=== PATIENT | male | born 1980 | race Caucasian/White ===

== ENCOUNTER 2016-09-18 14:21 | Emergency (ER) | payer OTHER ==
[2016-09-18 14:26] VITALS: BP 142/88; PULSE 79; TEMP 98.4; BMI 26.6
[2016-09-18] MEDS ORDERED: SODIUM CHLORIDE 1,000 ML IV STA (14:43)
[2016-09-18] MEDS ORDERED: METOCLOPRAMIDE HCL INJECTION 10 MG/2 ML VIAL IVPB ONE (14:44)
--- NOTE | 2016-09-18 14:47 | PDOC ---
History of Present Illness - General History Source: Patient, Old Records Exam Limitations: No Limitations - History of Present Illness Initial Comments: 09/18/16 14:53 The patient is a 36 year old with a significant past medical history of migraines, who presents to the emergency department today for further evaluation of headache onset 4 days ago. The patient states that his headache started out very mild and has progressively worsened and has remained constant. The patient notes that his pain is located at the temples bilaterally. The patient reports that he drinks red bull everyday, sometimes as many as 3 times per day. The patient notes that he took Advil today with minimal alleviation of symptoms. The patient reports that he has experienced similar symptoms in that past and notes they are triggered by drinking red bull, over exercising, and decreased food intake. The patient denies head trauma and fever. The patient denies dysphagia , vision changes, and difficulty speaking. The patient denies nausea and vomiting The patient denies chest pain and neck pain PAST MEDICAL HISTORY: Migraines PAST SURGICAL HISTORY: no significant history reported FAMILY HISTORY: no pertinent history reported SOCIAL HISTORY: Smokes marijuana daily MEDICATIONS: reviewed ALLERGIES: As per nursing notes <Arjun Shipley - Last Filed: 09/18/16 15:48> <Janes Cali - Last Filed: 09/18/16 15:54> - General Chief Complaint: Headache Stated Complaint: headache Time Seen by Provider: 09/18/16 14:42 Past History <Arjun Shipley - Last Filed: 09/18/16 15:48> - Past Medical History Anemia: No Asthma: No Cancer: No Cardiac Disorders: No CVA: No COPD: No Diabetes: No HTN: Yes (NOT ON MEDICATION) Hypercholesterolemia: No HIV: No Kidney Stones: No Liver Disease: No Psychiatric Problems: No Suicide Attempt (Hx): No - Immunization History Td Vaccination: Yes Immunization Up to Date: No - Psycho/Social/Smoking Cessation Hx Anxiety: No Suicidal Ideation: No Smoking Status: No Smoking History: Never smoked Have you smoked in the past 12 months: Yes Number of Cigarettes Smoked Daily: 0 Information on smoking cessation initiated: No 'Breaking Loose' booklet given: 05/22/15 Hx Alcohol Use: No Drug/Substance Use Hx: Yes Substance Use Type: Marijuana <Janes Cali - Last Filed: 09/18/16 15:54> - Past Medical History Allergies/Adverse Reactions: Allergies Allergy/AdvReac Type Severity Reaction Status Date / Time No Known Allergies Allergy Verified 09/18/16 14:22 Home Medications: Ambulatory Orders Naproxen [EC-Naprosyn] 375 mg PO BID PRN #18 tablet.ec 09/18/16 Review of Systems - Review of Systems Able to Perform ROS?: Yes Comments:: 09/18/16 14:53 CONSTITUTIONAL: Absent: Fever, Chills, Diaphoresis, Generalized Weakness, Malaise, Loss of Appetite HEENT: Absent: Rhinorrhea, Nasal Congestion, Throat Pain, Throat Swelling, Difficulty Swallowing, Mouth Swelling, Ear Pain, Eye Pain, Visual Changes CARDIOVASCULAR: Absent: Chest Pain, Syncope, Palpitations, Irregular Heart Rate, Lightheadedness , Peripheral Edema RESPIRATORY: Absent: Cough, Shortness of Breath, SOB with Exertion, Orthopnea, Wheezing, Stridor, Hemoptysis GASTROINTESTINAL: Absent: Abdominal pain, Abdominal Distension, Nausea, Vomiting, Diarrhea, Constipation, Melena, Hematochezia GENITOURINARY: Absent: Dysuria, Frequency, Urgency, Hesitancy, Flank Pain, Genital Pain MUSCULOSKELETAL: Absent: Myalgia, Arthralgia, Joint Swelling, Back pain, Neck Pain SKIN: Absent: Rash, Itching, PalloR HEMEATOLOGIC/IMMUNOLOGIC: Absent: Easy Bleeding, Easy Bruising, Lymphadenopathy, Frequent infections ENDOCRINE: Absent: Unexplained Weight Gain, Unexplained Weight Loss, Heat Intolerance, Cold Intolerance NEUROLOGIC: Present: Headache Absent: Focal Weakness, Paresthesias, Vertigo, Lightheadedness, Unsteady Gait, Seizure, Mental Status Changes, Incontinence PSYCHIATRIC: Absent: Anxiety, Depression <Arjun Shipley - Last Filed: 09/18/16 15:48> *Physical Exam - Vital Signs Last Vital Signs Temp Pulse Resp BP Pulse Ox 98.4 F 79 16 142/88 100 09/18/16 14:21 09/18/16 14:21 09/18/16 14:21 09/18/16 14:21 09/18/16 14:21 - Physical Exam Comments: 09/18/16 14:55 GENERAL: The patient is awake, alert, and fully oriented, in no acute distress. HEAD: Normal with no signs of trauma. EYES: Pupils equal, round and reactive to light, extraocular movements intact, sclera anicteric, conjunctiva clear. ENT: Ears normal, nares patent, oropharynx clear without exudates. Moist mucous membranes. NECK: Normal range of motion, supple without lymphadenopathy, JVD, or masses. Carotids no bruis. LUNGS: Breath sounds equal, clear to auscultation bilaterally. No wheezes, and no crackles. HEART: Regular rate and rhythm, normal S1 and S2 without murmur, rub or gallop. ABDOMEN: Soft, nontender, normoactive bowel sounds. No guarding, no rebound. No masses. EXTREMITIES: Normal range of motion, no edema. No clubbing or cyanosis. No cords , erythema, or tenderness. PSYCH: Normal mood, normal affect. SKIN: Warm, Dry, normal turgor, no rashes or lesions noted. NEUROLOGICAL Mental status: The patient is oriented x3. Cranial nerves: Cranial nerves II through XII are intact Motor: The upper extremities are 5 over 5 in all muscle groups. The lower extremities are 5 over 5 in all muscle groups. Sensation: Sensation is intact to light touch throughout. Cerebellar: Xlaeba-yaznmi-ublc is normal in both upper extremities. Heel-knee- mesa is normal in both lower extremities. Reflexes: 2+ and symmetric in the upper and lower extremities. Gait: Normal. Heel and toe walking are normal. Tandem gait is normal. <Arjun Shipley - Last Filed: 09/18/16 15:48> - Vital Signs Last Vital Signs Temp Pulse Resp BP Pulse Ox 98.4 F 79 16 142/88 100 09/18/16 14:21 09/18/16 14:21 09/18/16 14:21 09/18/16 14:21 09/18/16 14:21 <Janes Cali - Last Filed: 09/18/16 15:54> Medical Decision Making - Medical Decision Making 09/18/16 15:49 Patient is a 36-year-old man with a history of recurrent headaches. He comes in now with a bitemporal headache that is typical, consistent with his prior headaches. He states that the headache has been present for 4 days, started mild and then progressed, comes and goes, sometimes worse, and moderate currently. No associated fever or head trauma. No neck pain or stiffness. No photophobia. Physical examination including a detailed neurological examination is completely normal. Impression: Probable tension headache versus migraine variant. Plan: Patient given IV fluids, Benadryl and Reglan with complete resolution of pain. On reassessment, his pain is 0/10. He states he is feeling well. Patient will get a prescription for Naprosyn as needed, and he is referred to primary care with Dr. Montana. <Janes Cali - Last Filed: 09/18/16 15:54> *DC/Admit/Observation/Transfer - Attestations Scribe Attestion: 09/18/16 15:11 Documentation prepared by Arjun Shipley, acting as medical billing and coding specialist for Janes Cali MD. <Arjun Shipley - Last Filed: 09/18/16 15:48> - Discharge Dispostion Admit: No <Janes Cali - Last Filed: 09/18/16 15:54> Diagnosis at time of Disposition: Headache Qualifiers: Headache type: tension-type Headache chronicity pattern: acute headache Intractability: not intractable Qualified Code(s): G44.209 - Tension-type headache, unspecified, not intractable - Discharge Dispostion Disposition: HOME Condition at time of disposition: Stable - Prescriptions Prescriptions: Naproxen [EC-Naprosyn] 375 mg PO BID PRN #18 tablet.ec PRN Reason: Headache - Referrals Referrals: Андрей Montana MD [Staff Physician] - - Patient Instructions Printed Discharge Instructions: DI for Headache Additional Instructions: You were evaluated today for a headache. You were given IV normal saline, Benadryl and Reglan for the headache with complete resolution. A prescription for Naprosyn twice a day has been sent to your pharmacy. Take Naprosyn as needed for headache. Drink plenty of fluids. Avoid excessive red bull use. Patient should eat frequent small meals to avoid headaches. Follow-up with Dr. Montana next week. Return to the emergency department for any severe or progressive symptoms.
== END 2016-09-18 16:13 | disposition home or self-care (01) ==
LOC: FER 14:21
PROC: 3E033GC Introduction of Other Therapeutic Substance into Peripheral Vein, Percutaneous Approach (ICD-10-PCS; principal; 2016-09-18)
PROC: 3E0337Z Introduction of Electrolytic and Water Balance Substance into Peripheral Vein, Percutaneous Approach (ICD-10-PCS; 2016-09-18)
DX: G44.209 Tension-type headache, unspecified, not intractable (principal)
CPT/HCPCS: 96361; 96374; 96375; 99282-25

== ENCOUNTER 2017-07-29 02:56 | Emergency (ER) | payer OTHER ==
[2017-07-29] MEDS ORDERED: SODIUM CHLORIDE 1,000 ML IV ONE ×2 (03:06→03:15)
[2017-07-29] MEDS ORDERED: ONDANSETRON 4 MG/2 ML VIAL IVPB ONE (03:06)
[2017-07-29] MEDS ORDERED: HYOSCYAMINE SULFATE 0.125 MG *ODT PO ONE (03:07)
--- NOTE | 2017-07-29 03:07 | PDOC ---
History of Present Illness - General Chief Complaint: Pain, Acute Stated Complaint: ABD PAIN Time Seen by Provider: 07/29/17 03:01 History Source: Patient Exam Limitations: No Limitations - History of Present Illness Initial Comments: 07/29/17 03:10 This is a 37-year-old male who comes in complaining of acute onset of nausea vomiting post eating a pizza earlier in the evening. Patient is complaining of moderately severe intermittant crampy abdominal pain associated with the nausea and vomiting. Patient denies any diarrhea, fever, chills, chest pain, shortness of breath. Patient has history of similar episodes in the past. I saw patient approximately 3 years ago for a very similar episode. Patient had a gallbladder ultrasound at that time which was normal. Patient received fluids and antiemetics and symptoms resolved prior to his discharge. Patient is otherwise healthy but does smoke marijuana daily basis. PAST MEDICAL HISTORY: no significant history PAST SURGICAL HISTORY: no significant history FAMILY HISTORY: no pertinant history SOCIAL HISTORY: Pt lives with family and is employed. MEDICATIONS: reviewed ALLERGIES: As per nursing notes Review of Systems General: No fevers or chills, no weakness, no weight loss HEENT: No change in vision. No sore throat,. No ear pain CardioVascular: No chest pain or shortness of breath Respiratory:No cough, or wheezing. Gastrointestinal: + nausea, + vomitting, no diarrhea or constipation, No rectal bleeding Genitourinary: No dysuria, hematuria, or frequency Musculoskeletal: No joint or muscle pain or swelling Neurologic: No headache, vertigo, dizziness or loss of consciousness Psychiatric: nor depression Skin: No rashes or easy bruising Endocrine: no increased thirst or abnormal weight change Allergic: no skin or latex allergy All other systems reviewed and normal Exam: General: Well-nourished well-developed individual, moderate distress HEENT: Throat: Normal, tonsils normal, no erythema or exudate Neck: Supple, no meningeal signs, no lymphadenopathy Eyes::Pupils equal reactive and round, extraocular motion intact Chest: Nontender to palpation Cardiac: S1-S2 normal, regular rate and rhythm, no murmurs rubs or gallops Respiratory: Lungs clear to auscultation bilateral Abdomen: Soft, nondistended, normal bowel sounds, mildly tender to palpation diffusely. On palpation patient says that his abdomen feels tight rather than it being painful. Patient says that the pain he has associated with abdominal spasms when he vomits but otherwise denies pain. Extremities: Warm, dry, no cyanosis, clubbing, or edema Skin: No rashes Neuro: Alert and oriented x3, CN II - XII intact, nonfocal exam with normal strength, normal sensation, normal reflexes, normal gait, Psych: Normal mood and affect 07/29/17 4:00 Patient's vomiting will Give Reglan. Patient however is otherwise somewhat improved. 04:30 Patient has a mildly elevated white count but no left shift. Patient otherwise feels better. Vomiting has resolved. Repeat abdominal exam is soft and nontender. Patient had a similar elevation of his white count during his last episode that I treated him for. Patient discharged home to return if anything changes and follow-up with his doctor today or tomorrow. Past History - Past Medical History Allergies/Adverse Reactions: Allergies Allergy/AdvReac Type Severity Reaction Status Date / Time No Known Allergies Allergy Verified 09/18/16 14:22 Home Medications: Ambulatory Orders NK [No Known Home Medication] 07/29/17 Anemia: No Asthma: No Cancer: No Cardiac Disorders: No CVA: No COPD: No Diabetes: No HTN: Yes (NOT ON MEDICATION) Hypercholesterolemia: No Kidney Stones: No Liver Disease: No Psychiatric Problems: No - Immunization History Td Vaccination: Yes Immunization Up to Date: No - Suicide/Smoking/Psychosocial Hx Smoking Status: No Smoking History: Never smoked Have you smoked in the past 12 months: Yes Number of Cigarettes Smoked Daily: 0 'Breaking Loose' booklet given: 05/22/15 Hx Alcohol Use: No Drug/Substance Use Hx: Yes Substance Use Type: Marijuana ED Treatment Course - LABORATORY CBC & Chemistry Diagram: 07/29/17 03:09 07/29/17 03:09 *DC/Admit/Observation/Transfer Diagnosis at time of Disposition: Abdominal pain Qualifiers: Abdominal location: generalized Qualified Code(s): R10.84 - Generalized abdominal pain Nausea & vomiting Qualifiers: Vomiting type: unspecified Vomiting Intractability: non-intractable Qualified Code(s): R11.2 - Nausea with vomiting, unspecified - Discharge Dispostion Disposition: HOME Condition at time of disposition: Good Admit: No - Referrals - Patient Instructions Additional Instructions: Clear liquids only for the next 6 hours.. After that if you have had no further vomiting you may have bananas, rice, applesauce, or toast. If no further vomiting for another 8 hours you may have regular food. If you vomit again then nothing to eat or drink for 2 hours. then start back with the clear liquids. Return to the emergency department immediately with ANY new, persistent or worsening symptoms. You MUST call and follow up with your doctor tomorrow if not better. Please make sure your doctor reviews the results of your emergency evaluation. Continue any medications as previously prescribed by your physician. . Please make sure your doctor reviews the results of your emergency evaluation. Thank you for coming to the Emergency Department today for your care. It was a pleasure to see you today. Please note that your evaluation is INCOMPLETE until you follow-up with your doctor. - Post Discharge Activity
[2017-07-29 03:10] VITALS: BP 154/98; PULSE 62; TEMP 98.3; BMI 27.4
[2017-07-29 04:38] LABS: BASO % 0.5 % (0-2.0); EOS % 0.1 % (0-4.5); MCH 28.2 pg (25.7-33.7); MCHC 33.3 g/dl (32.0-35.9); MEAN CELL VOLUME 84.6 fl (80-96); MEAN PLT VOLUME 8.4 fl (7.5-11.1); PLATELET COUNT 249 K/MM3 (134-434); RDW 14.4 % (11.9-15.9); WHITE BLOOD COUNT 15.3 K/mm3 (4.0-10.0)
[2017-07-29 05:35] LABS: ALBUMIN 4.4 g/dl (3.4-5.0); ANION GAP 9 (8-16); BILIRUBIN,TOTAL 0.8 mg/dL (0.2-1.0); CALCIUM 9.1 mg/dL (8.5-10.1); CO2 26 mmol/L (21-32); CREATININE 1.1 mg/dL (0.7-1.3); GLUCOSE,RANDOM 132 mg/dL (74-106); SGOT/AST 14 U/L (15-37); SGPT/ALT 29 U/L (12-78); TOT PROT 7.7 g/dl (6.4-8.2)
[2017-07-29 05:36] LABS: ALK PHOS 92 U/L (45-117)
== END 2017-07-29 05:56 | disposition home or self-care (01) ==
LOC: FER 02:56
PROC: 3E033GC Introduction of Other Therapeutic Substance into Peripheral Vein, Percutaneous Approach (ICD-10-PCS; principal; 2017-07-29)
PROC: 3E0337Z Introduction of Electrolytic and Water Balance Substance into Peripheral Vein, Percutaneous Approach (ICD-10-PCS; 2017-07-29)
DX: R11.2 Nausea with vomiting, unspecified (principal)
CPT/HCPCS: 36415; 80053; 83690; 85025; 99283-25

== ENCOUNTER 2017-08-26 01:44 | Emergency (ER) | payer OTHER ==
[2017-08-26 01:50] VITALS: BP 155/88; PULSE 67; TEMP 98; BMI 25.7
--- NOTE | 2017-08-26 01:50 | PDOC ---
History of Present Illness - General Chief Complaint: Pain Stated Complaint: ABD PAIN Time Seen by Provider: 08/26/17 01:49 - History of Present Illness Initial Comments: This 37-year-old man with a history of intermittent nausea/vomiting and marijuana use presents with a several hour history of nausea and multiple episodes of vomiting. According to the patient and his , the patient vomited approximately 15-20 times prior to presentation in the ER. No blood or coffee ground in emesis He had no symptoms earlier in the day; in the early evening he began to have symptoms. No one Ill at home and no known sick contacts. One episode of loose stool this evening. No fever/chills or severe abdominal pain Past History - Past Medical History Allergies/Adverse Reactions: Allergies Allergy/AdvReac Type Severity Reaction Status Date / Time No Known Allergies Allergy Verified 09/18/16 14:22 Home Medications: Ambulatory Orders Metoclopramide HCl [Reglan -] 10 mg PO TID PRN #12 tablet 08/26/17 Anemia: No Asthma: No Cancer: No Cardiac Disorders: No CVA: No COPD: No Diabetes: No HTN: Yes (NOT ON MEDICATION) Hypercholesterolemia: No Kidney Stones: No Liver Disease: No Psychiatric Problems: No - Immunization History Td Vaccination: Yes Immunization Up to Date: No - Suicide/Smoking/Psychosocial Hx Smoking Status: No Smoking History: Never smoked Have you smoked in the past 12 months: Yes Number of Cigarettes Smoked Daily: 0 'Breaking Loose' booklet given: 05/22/15 Hx Alcohol Use: No Drug/Substance Use Hx: Yes Substance Use Type: Marijuana *DC/Admit/Observation/Transfer Diagnosis at time of Disposition: Nausea & vomiting Qualifiers: Vomiting type: unspecified Vomiting Intractability: non-intractable Qualified Code(s): R11.2 - Nausea with vomiting, unspecified - Discharge Dispostion Disposition: HOME Condition at time of disposition: Stable - Prescriptions Prescriptions: Metoclopramide HCl [Reglan -] 10 mg PO TID PRN #12 tablet PRN Reason: Nausea And/Or Vomiting - Referrals - Patient Instructions Printed Discharge Instructions: DI for Vomiting -- Adult Additional Instructions: Clear liquids; advance diet cautiously Avoid excessive marijuana use Reglan 10 mg up to 3 times a day as needed for nausea Follow-up with your general medical doctor within the next week Return to ER if you have any recurrent vomiting or develop fever/abdominal pain - Post Discharge Activity
[2017-08-26] MEDS ORDERED: ONDANSETRON 4 MG/2 ML VIAL IVPUSH ONE (02:12)
[2017-08-26] MEDS ORDERED: SODIUM CHLORIDE 1,000 ML IV STA (02:13)
[2017-08-26] MEDS ORDERED: METOCLOPRAMIDE HCL INJECTION 10 MG/2 ML VIAL IVPB ONE (02:30)
== END 2017-08-26 03:57 | disposition home or self-care (01) ==
LOC: FER 01:44
PROC: 3E033GC Introduction of Other Therapeutic Substance into Peripheral Vein, Percutaneous Approach (ICD-10-PCS; principal; 2017-08-26)
PROC: 3E0337Z Introduction of Electrolytic and Water Balance Substance into Peripheral Vein, Percutaneous Approach (ICD-10-PCS; 2017-08-26)
DX: R11.2 Nausea with vomiting, unspecified (principal)
CPT/HCPCS: 99282-25

== ENCOUNTER 2017-11-17 21:12 | Emergency (ER) | payer OTHER ==
[2017-11-17 21:21] VITALS: BP 132/73; PULSE 84; TEMP 98.9; BMI 26.6
--- NOTE | 2017-11-17 21:21 | PDOC ---
History of Present Illness - General History Source: Patient Exam Limitations: No Limitations - History of Present Illness Initial Comments: 11/17/17 21:26 A portion of this note was documented by scribe services under my direction. I have reviewed the details of the note, within reason, and agree with the documentation. The case summary and management plan written by me. Assessment and plan: This is a 37-year-old male who injured his right medial aspect of his elbow when he was throwing a baseball. Patient felt a pop in the area of the pain and since then over the last 3 weeks it has continued to be uncomfortable and painful to the point now he says he can't throw a baseball. Patient occasionally takes Aleve for the pain and has not followed up with anybody Told patient that he needs to follow-up with an orthopedist if referral to the orthopedic group. The hospital and told him to continue to take Aleve or Motrin for the pain patient was discharged home <Wan Stephens I - Last Filed: 11/17/17 21:26> - General History Source: Patient Exam Limitations: No Limitations - History of Present Illness Initial Comments: The patient is a 37 year old male, with no significant PMH presents to the emergency department with injured elbow for the past 3 weeks. The patient reports he was trying to throw a baseball when he heard a snap over his elbow. The patient reports hes been unable to throw a ball since the incident and hurts when he sleeps on the hand. The patient reports he took Aleve to relieve the pain with minimal relief. Allergies: NKDA Medication: Reglan 11/17/17 21:36 <Donna Blanchard - Last Filed: 11/17/17 21:38> - General Chief Complaint: Pain, Acute Stated Complaint: R ARM PAIN Time Seen by Provider: 11/17/17 21:19 Past History - Past Medical History Anemia: No Asthma: No Cancer: No Cardiac Disorders: No CVA: No COPD: No Diabetes: No HTN: Yes (NOT ON MEDICATION) Hypercholesterolemia: No Kidney Stones: No Liver Disease: No Psychiatric Problems: No - Immunization History Td Vaccination: Yes Immunization Up to Date: No - Suicide/Smoking/Psychosocial Hx Smoking Status: No Smoking History: Never smoked Have you smoked in the past 12 months: Yes Number of Cigarettes Smoked Daily: 0 'Breaking Loose' booklet given: 05/22/15 Hx Alcohol Use: No Drug/Substance Use Hx: Yes Substance Use Type: Marijuana <Wan Stephens I - Last Filed: 11/17/17 21:26> <Donna Blanchard - Last Filed: 11/17/17 21:38> - Past Medical History Allergies/Adverse Reactions: Allergies Allergy/AdvReac Type Severity Reaction Status Date / Time No Known Allergies Allergy Verified 09/18/16 14:22 Home Medications: Ambulatory Orders Metoclopramide HCl [Reglan -] 10 mg PO TID PRN #12 tablet 08/26/17 Review of Systems - Review of Systems Able to Perform ROS?: Yes Comments:: General: No fevers or chills, no weakness, no weight loss HEENT: No change in vision. No sore throat,. No ear pain CardioVascular: No chest pain or shortness of breath Respiratory:No cough, or wheezing. Gastrointestinal: no nausea, vomiting, diarrhea or constipation, No rectal bleeding Genitourinary: No dysuria, hematuria, or frequency Musculoskeletal: (+) Elbow pain. No joint swelling. Neurologic: No headache, vertigo, dizziness or loss of consciousness Psychiatric: nor depression Skin: No rashes or easy bruising Endocrine: no increased thirst or abnormal weight change Allergic: no skin or latex allergy All other systems reviewed and normal 11/17/17 21:36 <Donna Blanchard - Last Filed: 11/17/17 21:38> *Physical Exam - Vital Signs Last Vital Signs Temp Pulse Resp BP Pulse Ox 98.9 F 84 14 132/73 99 11/17/17 21:14 11/17/17 21:14 11/17/17 21:14 11/17/17 21:14 11/17/17 21:14 - Physical Exam Comments: GENERAL: The patient is awake, alert, and fully oriented, in no acute distress. HEAD: Normal with no signs of trauma. EYES: Pupils equal, round and reactive to light, extraocular movements intact, sclera anicteric, conjunctiva clear. EXTREMITIES: Right elbow: (+) right tenderness over the medial aspect of the elbow. No bony tenderness. Full ROM. Patient expresses discomfort of the full extension of the hand. No edema. Neurovascular is intact. NEUROLOGICAL: Normal speech, normal gait. PSYCH: Normal mood, normal affect. SKIN: Warm, Dry, normal turgor, no rashes or lesions noted. 11/17/17 21:37 <Donna Blanchard - Last Filed: 11/17/17 21:38> *DC/Admit/Observation/Transfer - Discharge Dispostion Admit: No <Wan Stephens I - Last Filed: 11/17/17 21:26> - Attestations Scribe Attestion: 11/17/17 21:37 Documentation prepared by Donna Blanchard, acting as medical service representative for Wan Stephens MD. <Donna Blanchard - Last Filed: 11/17/17 21:38> Diagnosis at time of Disposition: Elbow pain, right - Discharge Dispostion Disposition: HOME Condition at time of disposition: Good - Patient Instructions Additional Instructions: Take ibuprofen or Aleve as directed on the bottle for pain. Call the orthopedist Dr. RYAN in the morning call [phone] for an appointment. Return to the emergency department immediately with ANY new, persistent or worsening symptoms. Continue any medications as previously prescribed by your physician. You should follow up with your primary doctor as soon as possible regarding today's emergency department visit. . Please make sure your doctor reviews the results of your emergency evaluation. Thank you for coming to the Emergency Department today for your care. It was a pleasure to see you today. Please note that your evaluation is INCOMPLETE until you follow-up with your doctor.
== END 2017-11-17 21:32 | disposition home or self-care (01) ==
LOC: FER 21:12
DX: M25.521 Pain in right elbow (principal)
CPT/HCPCS: 99282-25

== ENCOUNTER 2018-01-14 13:20 | Emergency (ER) | payer OTHER ==
[2018-01-14 13:29] VITALS: BP 167/79; PULSE 72; TEMP 98.4; BMI 26.6
--- NOTE | 2018-01-14 13:56 | PDOC ---
History of Present Illness - General Chief Complaint: Rash Stated Complaint: RASH Time Seen by Provider: 01/14/18 13:26 History Source: Patient Exam Limitations: No Limitations - History of Present Illness Initial Comments: 01/14/18 13:50 Mr. Sorenson is an otherwise healthy 37-year-old male who presents emergency department with several pruritic lesions on his upper extremity. Patient states he noticed a rash on his right forearm yesterday afternoon. Subsequent to that he noticed several lesions in the left axillary area. They are HE, nonpainful. No fevers, no chills. Patient states he was at the park yesterday [place] his [place]. Went to a hotel yesterday evening Went home and noticed none of these symptoms on his son No change in lotion, soap, deodorant. Medical: Denies Past surgical: Denies Medication: Denies ALLERGIES: No known drug, food ALLERGY. Social: Admits to marijuana use, denies other drug use. Social alcohol use. No tobacco use GENERAL/CONSTITUTIONAL: No: fever, chills CARDIOVASCULAR: No: chest pain, lightheadedness, palpitations, syncope RESPIRATORY: No: cough, shortness of breath, wheezing, hemoptysis, stridor. GASTROINTESTINAL: No: nausea, vomiting, diarrhea, abdominal cramping, rectal bleeding, constipation. GENITOURINARY: No: dysuria, hematuria, frequency, urgency, flank pain. MUSCULOSKELETAL: No: back pain SKIN: YEs: rash NEUROLOGIC: No: headache PE: GENERAL: The patient is in no acute distress. HEAD: Normal EYES: PERRLA, EOMI, sclera anicteric, conjunctiva clear. ENT: Ears normal, nares patent, oropharynx clear without exudates. Moist mucous membranes. NECK: Normal range of motion LUNGS: Breath sounds equal, clear to auscultation bilaterally. No wheezes, and no crackles. HEART:Regular rate and rhythm, normal S1 and S2 without murmur, rub or gallop. ABDOMEN: Soft, nontender EXTREMITIES: Normal range of motion NEUROLOGICAL: Cranial nerves II through XII grossly intact. Normal speech. No focal neurological deficits. SKIN: Right forearm: 2 erythematous macular lesions, non tender Left posterior axillary region, 6 erythematous lesions noted Past History - Past Medical History Allergies/Adverse Reactions: Allergies Allergy/AdvReac Type Severity Reaction Status Date / Time No Known Allergies Allergy Verified 01/14/18 13:21 Home Medications: Ambulatory Orders Diphenhydramine HCl/Zinc Acet [Benadryl 2% Cream] 1 applic TP TID PRN #1 tube Anemia: No Asthma: No Cancer: No Cardiac Disorders: No CVA: No COPD: No Diabetes: No HTN: Yes (NOT ON MEDICATION) Hypercholesterolemia: No Kidney Stones: No Liver Disease: No Psychiatric Problems: No - Immunization History Td Vaccination: Yes Immunization Up to Date: No - Suicide/Smoking/Psychosocial Hx Smoking Status: No Smoking History: Never smoked Have you smoked in the past 12 months: Yes Number of Cigarettes Smoked Daily: 0 Information on smoking cessation initiated: Yes 'Breaking Loose' booklet given: 01/14/18 Hx Alcohol Use: No Drug/Substance Use Hx: No Substance Use Type: Marijuana *Physical Exam - Vital Signs Last Vital Signs Temp Pulse Resp BP Pulse Ox 98.4 F 72 20 167/79 100 01/14/18 13:21 01/14/18 13:21 01/14/18 13:21 01/14/18 13:21 01/14/18 13:21 Medical Decision Making - Medical Decision Making 01/14/18 13:54 37-year-old male presented to emergency department with erythematous lesions on the right forearm, and left axilla. Differential diagnosis includes but is not limited to: Bed bugs, arthropod bites, scabies Unlikely scabies given the location, no involvement of the knuckles. Possibly bedbugs, this will be difficult to verify as patient cannot check the hotel room that he was in, less likely given son slept at his home and didn't have similar symptoms Possibly arthropod bites No evidence of target sign Will discharge with benadryl cream Clinical Impression: arthropod bite, initial presentation *DC/Admit/Observation/Transfer Diagnosis at time of Disposition: Arthropod bite Qualifiers: Encounter type: initial encounter Qualified Code(s): W57.XXXA - Bitten or stung by nonvenomous insect and other nonvenomous arthropods, initial encounter - Discharge Dispostion Disposition: HOME Condition at time of disposition: Stable Decision to Admit order: No - Referrals - Patient Instructions Printed Discharge Instructions: DI for Insect Bites and Stings, DI for Bed Bug Bites - Post Discharge Activity
== END 2018-01-14 14:05 | disposition home or self-care (01) ==
LOC: FER 13:20
DX: W57.XXXA Bitten or stung by nonvenomous insect and other nonvenomous arthropods, initial encounter (principal); Y93.89 Activity, other specified; Y92.9 Unspecified place or not applicable; I10 Essential (primary) hypertension; Z87.891 Personal history of nicotine dependence
CPT/HCPCS: 99281-25

== ENCOUNTER 2018-11-28 11:36 | Emergency (ER) | payer OTHER ==
[2018-11-28] MEDS ORDERED: TETRACAINE 0.5% OPHTH SOLN 2 ML BOTTLE ONE (11:45)
[2018-11-28] MEDS ORDERED: FLUORESCEIN NA 1 EA STRIP ONE (11:45)
--- NOTE | 2018-11-28 11:47 | PDOC ---
History of Present Illness - General Chief Complaint: Eye Problem Stated Complaint: EYE INJURY Time Seen by Provider: 11/28/18 11:39 History Source: Patient Exam Limitations: No Limitations - History of Present Illness Initial Comments: 38 yo M w a pmh of HTN not on meds, and migraines who presents to the [facility] after sustaining a right eye injury. He was opening a plastic CD case when he by accidentally shattered the case and a small plastic piece from case flew into his right eye and caused him to be in immediate pain. This episode happened 45 minutes prior to the patient's arrival where he was brought to the ER by a friend. The patient endorses right eye blurry vision and pain. He says he can still make out signs and see how many fingers someone is holding up despite his pain. PCP: Patient is unsure but thinks it is Andrea Faith. Prior charts have showed it to be Андрей [place]. PSH: None Reported Allergies: NKA, NKDA Social Hx: Smokes marijuana daily. Denies alcohol, cigarettes, or other substance usage. Past History - Past Medical History Allergies/Adverse Reactions: Allergies Allergy/AdvReac Type Severity Reaction Status Date / Time No Known Allergies Allergy Verified 11/28/18 11:39 Home Medications: Ambulatory Orders Erythromycin 0.5% Eye Ointment [Erythromycin 0.5% Eye Ointment -] 1 applic AD TID 5 Days #1 tube 11/28/18 Anemia: No Asthma: No Cancer: No Cardiac Disorders: No CVA: No COPD: No Diabetes: No HTN: Yes (NOT ON MEDICATION) Hypercholesterolemia: No Kidney Stones: No Liver Disease: No Psychiatric Problems: No - Immunization History Td Vaccination: Yes Immunization Up to Date: No - Suicide/Smoking/Psychosocial Hx Smoking Status: No Smoking History: Never smoked Have you smoked in the past 12 months: Yes Number of Cigarettes Smoked Daily: 0 'Breaking Loose' booklet given: 01/14/18 Hx Alcohol Use: No Drug/Substance Use Hx: No Substance Use Type: Marijuana Review of Systems - Review of Systems Able to Perform ROS?: Yes Comments:: CONSTITUTIONAL: Absent: fever, no chills, no fatigue EYES: Present: visual changes ENT: Absent: ear pain, no sore throat CARDIOVASCULAR: Absent: chest pain, no palpitations RESPIRATORY: Absent: cough, no SOB GI: Absent: abdominal pain, no nausea, no vomiting, no constipation, no diarrhea GENITOURINARY: Absent: dysuria, no frequency, no hematuria MUSKULOSKELETAL: Absent: back pain, no arthralgia, no myalgia SKIN: Absent: rash NEURO: Absent: headache *Physical Exam - Physical Exam Comments: RIGHT EYE: 20/40 visual acuity. There is a medial linear laceration seen over the cornea, pupil and iris seen by increased florescin uptake. There is a discrete area of uptake on the lower half of the pupil from florescin. Patient can see out of all 4 visual mariano and approrpriately differentiates 2 vs 1 fingers. LEFT EYE: Normal. 20/15 visual acuity. GENERAL: Well-appearing, well-nourished. No apparent distress. HEENT: Normocephalic, atraumatic. PERRL, EOM intact. CARDIOVASCULAR: Normal S1, S2. Regular rate and rhythm. PULMONARY: No evidence of respiratory distress. Lungs clear to auscultation bilaterally. No wheezing, rales or rhonchi. ABDOMEN: Soft, non-distended, non-tender. EXTREMITIES: Normal ROM in all four extremities. No gross deformities. SKIN: Warm, dry. No rash NEUROLOGICAL: No focal neurological deficits. Medical Decision Making - Medical Decision Making 38 yo M w a pmh of HTN not on meds, and migraines who presents to the [facility] ER after sustaining a right eye injury. He was opening a plastic CD case when he by accidentally shattered the case and a small plastic piece from case flew into his right eye and caused him to be in immediate pain. This episode happened 45 minutes prior to the patient's arrival where he was brought to the ER by a friend. The patient endorses right eye blurry vision and pain. He says he can still make out signs and see how many fingers someone is holding up despite his pain. VS: WNL DDx IBNLT: Corneal laceration, retained foreign body, ruptured globe. Plan: Visual acuity testing, canales lamp test, analgesia, topical Abx, re- assess. Visual Acuity: 20/15 OS, 20/40 OD. Canales Lamp: Linear corneal laceration, circular laceration. Given patient's decreased visual acuity will re-check in after flourescin and tetracaine wears off. If visual acuity is still decreased will get a CT orbit to r/o a foreign body in the patient's eye. Patient's visual acuity 20/25 in the injured eye. Erythromycin ointment sent to the patient's pharmacy and patient advised to apply 3-5 times a day for the next 5 days. - Patient given referall for opthalmology follow up - patient advised to take NSAIDs as needed for pain control. *DC/Admit/Observation/Transfer Diagnosis at time of Disposition: Corneal laceration of right eye - Discharge Dispostion Disposition: HOME Condition at time of disposition: Good Decision to Admit order: No - Prescriptions Prescriptions: Erythromycin 0.5% Eye Ointment [Erythromycin 0.5% Eye Ointment -] 1 applic AD TID 5 Days #1 tube - Referrals Referrals: Chris Colbert MD [Staff Physician] - - Patient Instructions Printed Discharge Instructions: DI for Corneal Abrasion, DI for Corneal Foreign Body-Eye Additional Instructions: You came into the ER after you sustained a right eye injury. We put some dye in your eye and looked at it under a canales lamp whhich showed that you have a corneal abrasion - please see attached handout for further explanation. Take motrin/ibuprofen/advil/naproxyn as needed for pain control. We are sending erythromycin ointment to your pharmacy - please make sure to go and pick it up and apply to your eyes 4 times a day for the next 5 days. We are giving you the number of an opthalmologist to follow up with in the next 3 to 5 days to make sure your eye is getting better and you are being taken care of and watched over. Come back to the ER immediately if your pain worsens, you get a fever, become nauseous, start vomiting, or have any other new or worsening concerns. Thank you for coming to the [facility]. We hope you feel better soon! Print Language: ROMANIAN - Post Discharge Activity
[2018-11-28 11:53] VITALS: BP 143/98; PULSE 92; TEMP 98; BMI 25.7
--- NOTE | 2018-11-28 12:14 | PDOC ---
Attending Attestation - Resident Resident Name: SureshFranky - ED Attending Attestation I have performed the following: I have examined & evaluated the patient, The case was reviewed & discussed with the resident, I agree w/resident's findings & plan, Exceptions are as noted - HPI HPI: 11/28/18 12:10 38 M with h/o HTN, migraines, presenting to ED with R eye injury. Pt states he was cracking CD cases when a piece of plastic snapped off and hit him in the eye. Pt states that he has had a burning sensation and light sensitivity since the injury. Denies any blurry vision or double vision. - Physicial Exam PE: 11/28/18 12:11 "GENERAL: Awake, alert, and fully oriented, in no acute distress. HEAD: No signs of trauma EYES: + linear corneal abrasion with small ulcer, no foreign bodies visualized, negative raven's sign, PERRLA, EOMI, sclera anicteric ENT: Auricles normal inspection, hearing grossly normal, nares patent, oropharynx clear without exudates. Moist mucosa NECK: Nontender, no stepoffs, Normal ROM, supple, no lymphadenopathy, JVD, or masses LUNGS: Breath sounds equal, clear to auscultation bilaterally. No wheezes, and no crackles HEART: Regular rate and rhythm, normal S1 and S2, no murmurs, rubs or gallops ABDOMEN: Soft, nontender, normoactive bowel sounds. No guarding, no rebound. No masses EXTREMITIES: Normal range of motion, no edema. No clubbing or cyanosis. No cords, erythema, or tenderness NEUROLOGICAL: Cranial nerves II through XII intact. 5/5 strength and sensation in all extremities, Normal speech, normal gait, normal cerebellar function SKIN: Warm, Dry, normal turgor, no rashes or lesions noted. - Medical Decision Making 11/28/18 12:14 38 M with corneal abrasion of R eye. VA 20/25 in affected eye. No evidence of globe rupture on exam. - Topical abx - Analgesia - F/u ophtho Pt is well appearing, with normal vitals. Clinically stable for DC at this time. I discussed the physical exam findings, ancillary test results and final diagnoses with the patient. I answered all of the patient's questions. The patient was satisfied with the care received and felt comfortable with the discharge plan and treatment plan. The patient agrees to follow up with the primary care physician within 24-72 hours.
== END 2018-11-28 12:36 | disposition home or self-care (01) ==
LOC: FER 11:36
DX: S05.31XA Ocular laceration without prolapse or loss of intraocular tissue, right eye, initial encounter (principal); W20.8XXA Other cause of strike by thrown, projected or falling object, initial encounter; Y93.89 Activity, other specified; Y92.89 Other specified places as the place of occurrence of the external cause; I10 Essential (primary) hypertension
CPT/HCPCS: 99282-25

== ENCOUNTER 2020-10-24 11:24 | Emergency (ER) | payer OTHER ==
[2020-10-24 11:31] VITALS: BP 146/77; PULSE 83; TEMP 98.3; BMI 25.7
[2020-10-24] MEDS ORDERED: KETOROLAC TROMETHAMINE 60 MG/2 ML VIAL IM ONE (11:44)
[2020-10-24] MEDS ORDERED: KETOROLAC TROMETHAMINE 60 MG/2 ML VIAL ONE (12:01)
[2020-10-24] MEDS ORDERED: BACITRACIN 15 GM TUBE TOPICAL OINTMENT ONE (12:11)
== END 2020-10-24 12:31 | disposition home or self-care (01) ==
LOC: JERFT 11:24
PROC: 3E0233Z Introduction of Anti-inflammatory into Muscle, Percutaneous Approach (ICD-10-PCS; principal; 2020-10-24)
DX: S46.119A Strain of muscle, fascia and tendon of long head of biceps, unspecified arm, initial encounter (principal)
CPT/HCPCS: 73070-TC-RT-FY; 99284-25

== ENCOUNTER 2023-09-30 03:13 | Emergency (ER) | payer SELFPAY ==
[2023-09-30 03:22] VITALS: BP 144/103; PULSE 115; RESP 18; TEMP 98.8; BMI 26.0
[2023-09-30] MEDS ORDERED: ONDANSETRON 4 MG/2 ML VIAL ONE (03:45)
[2023-09-30] MEDS: ONDANSETRON 4 MG/2 ML VIAL IVPB ONE (03:49)
[2023-09-30] MEDS: SODIUM CHLORIDE 1,000 ML IV ONE ×2 (03:49→05:00)
[2023-09-30] MEDS: HYOSCYAMINE SULFATE 0.125 MG *ODT PO ONE (03:49)
[2023-09-30] MEDS: morphine CARPU-JECT 2 MG/1 ML DISP.SYRIN IVPUSH ONE (03:49)
[2023-09-30 04:39] LABS: HEMATOCRIT 48.4 % (35.4-49); HEMOGLOBIN 16.5 GM/dL (11.7-16.9); MCHC 34.2 g/dl (32.0-35.9); MEAN CELL VOLUME 81.8 fl (80-96); MEAN PLT VOLUME 7.3 fl (7.5-11.1); PLATELET COUNT 320 10^3/uL (134-434); RBC 5.91 M/mm3 (4.00-5.60); RDW 13.5 % (11.9-15.9)
[2023-09-30 04:53] LABS: POTASSIUM 4.5 mmol/L (3.5-5.1)
[2023-09-30 04:54] LABS: ALBUMIN 4.2 g/dl (3.4-5.0); CALCIUM 9.4 mg/dL (8.5-10.1)
[2023-09-30 04:56] LABS: BLOOD UREA NITROGEN 16.4 mg/dL (7-18)
[2023-09-30 05:00] LABS: BILIRUBIN,TOTAL 1.3 mg/dL (0.2-1)
== END 2023-09-30 05:11 | disposition home or self-care (01) ==
LOC: FER 03:13
PROC: 3E033NZ Introduction of Analgesics, Hypnotics, Sedatives into Peripheral Vein, Percutaneous Approach (ICD-10-PCS; principal; 2023-09-30)
PROC: 3E033GC Introduction of Other Therapeutic Substance into Peripheral Vein, Percutaneous Approach (ICD-10-PCS; 2023-09-30)
PROC: 3E0337Z Introduction of Electrolytic and Water Balance Substance into Peripheral Vein, Percutaneous Approach (ICD-10-PCS; 2023-09-30)
DX: R10.13 Epigastric pain (principal); R19.7 Diarrhea, unspecified; R11.0 Nausea
CPT/HCPCS: 36415; 80053; 83690; 85027; 99284-25